=== PATIENT | female | born 1960 | race Caucasian/White ===

== ENCOUNTER 2020-08-14 10:14 | Day surgery (SDC) | payer OTHER, SELFPAY ==
[2020-08-12 09:43] VITALS: BMI 21.9
--- NOTE | 2020-08-13 11:03 | P.CONAN_ITS ---
Documented by User: Lisha Tompkins 08/13/20 11:05 HPI - Anesthesia Eval Consult details Narrative: 60yo F for Colonoscopy: screening [facility] Past Medical History Medical History Allergic rhinitis HSV infection Stress incontinence Surgical History Surgical History Hx of colonoscopy Social History Social History Smoking Status: Never smoker Use of substances other than those prescribed or required for medical reasons: No Advance Directives: No Advance Directives Information Provided: No Advance Directives on File: No Meds Allergies Allergy/AdvReac Type Severity Reaction Status Date / Time cashew nut Allergy Intermediate HIVES Verified 08/14/20 11:10 walnut Allergy Intermediate HIVES Verified 08/14/20 11:10 Home Medications Medication Instructions Recorded Confirmed Type valacyclovir 1 tab PO DAILY 08/12/20 08/12/20 History fluticasone propionate [Flonase] INTRANASAL 08/13/20 History Exam Exam Date and Time: August 13, 2020 1103 Height,Weight and Vital Signs: Height 5 ft 2 in Weight 54.431 kg Assessment and Plan Assessment Anesthesia Assessment: Chart Reviewed Documented by User: Christiane Hutchison 08/14/20 12:31 [facility] Past Medical History Medical History Allergic rhinitis HSV infection Stress incontinence Family History Family history of problems with anesthesia: No Surgical History Surgical History Hx of colonoscopy History of Problems with Anesthesia: No Social History Social History Smoking Status: Never smoker Use of substances other than those prescribed or required for medical reasons: No Advance Directives: No Advance Directives Information Provided: No Advance Directives on File: No Meds Allergies Allergy/AdvReac Type Severity Reaction Status Date / Time cashew nut Allergy Intermediate HIVES Verified 08/14/20 11:10 walnut Allergy Intermediate HIVES Verified 08/14/20 11:10 Home Medications Medication Instructions Recorded Confirmed Type valacyclovir 1 tab PO DAILY 08/12/20 08/12/20 History fluticasone propionate [Flonase] INTRANASAL 08/13/20 History Exam Height,Weight and Vital Signs: Vital Signs Temp Pulse Resp BP Pulse Ox 08/14/20 11:12 97.9 F 56 16 127/71 98 Airway Mallampati Class: II TM Dist: >3cm Neck ROM: Full Denture: Upper Loose/Missing/Broken Teeth: No Heart: RRR Lungs: CTAB Assessment and Plan Assessment Anesthesia Assessment: Anesthesia Plan Discussed and Chart Reviewed Final Anesthetic Review NPO: Yes ASA Class: II Final Preanesthetic Review: No Changes in Pt Med Stat, Meds/Allgs Chart Reviewed, Consent Obtained/Reviewed and Anes Risks/Benef Reviewed Patient Risk: Low Procedure Risk: Low Anesthetic Plan Anesthetic Plan: MAC: Disposition: Standard PACU
[2020-08-14 11:12] VITALS: BP 127/71; PULSE 56; RESP 16; TEMP 36.6; O2SAT 98
[2020-08-14] MEDS: Lactated Ringers 1,000 ML 100 ML IVCONT (11:14)
[2020-08-14 11:15] VITALS: BMI 21.9
--- NOTE | 2020-08-14 12:41 | MHC.SHP ---
Pre-Procedural Eval Section A The patient is an INPATIENT: No The History & Physical has been completed within 30 days and I have reviewed it.: No Section B Chief Complaint: Screening Details of Present Illness: Colon cancer screening Relevant Family History (Specify if Yes): No Relevant Social History: None Present Medications: see Short Stay Collaborative assessment Medical History: Significant History (Seasonal allergies) History of Previous Operations: Relevant previous surgery/procedure and date(s) (colo--2010-neg) Allergies: Allergies Allergy/AdvReac Type Severity Reaction Status Date / Time cashew nut Allergy Intermediate HIVES Verified 08/14/20 11:10 walnut Allergy Intermediate HIVES Verified 08/14/20 11:10 Review of Systems Sugical H&P ROS: Negative: Constitution, Cardiovascular, Respiratory, Gastrointestinal and Musculoskeletal Exam Surgical H&P Exam: Normal: HEENT, Normal: Heart, Normal: Lungs, Normal: Extremities, Normal: Abdomen and Normal: Skin Plan Diagnosis/Plan: Unchanged Patient has been examined and remains a candidate for the planned procedure--YES
[2020-08-14 13:24] VITALS: BP 118/61; PULSE 73; RESP 16; TEMP 36.5; O2SAT 98
--- NOTE | 2020-08-14 13:25 | PM.PROC ---
Brief Operative Note Date of procedure: 08/14/20 Pre-op diagnosis: Colon cancer screening Post-op diagnosis: other (Normal exam) Procedure: Colonoscopy, no intervention Anesthesia: MAC (CARLOS ALBERTO Sandoval) Surgeon: Katy Quinn Estimated blood loss (mL): 0 Pathology: none sent Condition: stable Disposition: other
[2020-08-14 13:39] VITALS: BP 135/65; PULSE 71; RESP 16; TEMP 36.5; O2SAT 98
--- NOTE | 2020-08-14 14:57 | HO.POSTANES ---
Post Anesthesia Evaluation Post Anesthesia Evaluation Vital Signs: Vital Signs Temp Pulse Resp BP Pulse Ox 08/14/20 13:39 97.7 F 71 16 135/65 98 08/14/20 13:24 97.7 F 73 16 118/61 98 08/14/20 11:12 97.9 F 56 16 127/71 98 Anesthesia: General (TIVA) Mental Status: Awake Pain Control: Satisfactory Nausea/Vomiting: None Hydration: Adequate Anesthesia-Related Issues: No Anes. Related Issues
--- NOTE | 2020-08-17 12:17 | OP_ITS ---
SURGEON: Katy Quinn MD PREOPERATIVE DIAGNOSIS: Colon cancer screening. POSTOPERATIVE DIAGNOSIS: Negative exam. PROCEDURE PERFORMED: Colonoscopy. ESTIMATED BLOOD LOSS: No blood loss. COMPLICATIONS: No complications were observed. ANESTHESIA:MONITORED ANESTHESIOLOGIST: Bc Sandoval CRNA ASSISTANTS: No assistant city attorney. SPECIMENS: No specimens were sent. PRIMARY CARE PROVIDER: Adi Coello DO FINDINGS: Digital rectal exam revealed adequate sphincter tone. Video colonoscope was introduced without difficulty. It was navigated into the rectosigmoid and sigmoid inot descending, transverse, ascending colon down into the cecum. Appendiceal orifice was seen. Ileocecal valve was well seen. No mucosal abnormalities. Prep was good. Slow rotational views on withdrawal of the scope, no mucosal lesions were appreciated. Anorectal verge was clear. PLAN: Current recommendations for repeat asymptomatic screening in this patient is 10 years. TYPE OF ANESTHESIA: Monitored. GRAFT OR IMPLANTS: No grafts or implants. CONDITION: Postprocedure, stable. Katy Quinn MD MEN/MODL / [id number] MTDD
== END 2020-08-14 15:36 | disposition home or self-care (01) ==
PROVIDERS: PCP Family Medicine; Visit Provider Internal Medicine Gastroenterology
PROC: 0DJD8ZZ Inspection of Lower Intestinal Tract, Via Natural or Artificial Opening Endoscopic (ICD-10-PCS; CPT 45378; principal; 2020-08-14 11:40)
DX: Z12.11 Encounter for screening for malignant neoplasm of colon (principal); J30.9 Allergic rhinitis, unspecified; Z79.51 Long term (current) use of inhaled steroids; Z91.018 Allergy to other foods; Z87.891 Personal history of nicotine dependence
CPT/HCPCS: 45378

== ENCOUNTER 2021-05-01 10:45 | Outpatient (REF) | payer OTHER, SELFPAY ==
--- NOTE | ~2021-05-01 | MM_ITS ---
EXAMINATION: MM SCREENING DIGITAL BREAST TOMOSYNTHESIS, BILATERAL CLINICAL INFORMATION: Screening. Asymptomatic. The lifetime risk of breast cancer based on the Tyrer-Cuzick Model is 8%. COMPARISON: Mammography: 04/24/2020, 01/09/2019, 12/14/2017 TECHNIQUE: Digital breast tomosynthesis is performed in both the craniocaudal and mediolateral oblique views along with computer-aided detection (CAD). Synthesized 2D images are generated from the tomosynthesis. FINDINGS: There are scattered areas of fibroglandular density (ACR BI-RADS breast composition Category b). There are no significant masses, abnormal calcifications, or other abnormalities. Parenchymal pattern is similar to prior studies. No developing density. The axilla and skin contours are unremarkable. MM/MM tomosynthesis screening BI IMPRESSION: No mammographic evidence of malignancy. ASSESSMENT: BI-RADS 1: Negative RECOMMENDATION: Routine annual mammography screening. This patient's information was entered into a reminder system with a target due date for their next mammogram.
--- NOTE | ~2021-05-01 | MM_ITS ---
EXAMINATION: BONE DENSITOMETRY CLINICAL INDICATION: Osteoporosis. COMPARISON: None (current study represents initial baseline exam). TECHNIQUE: Using a [employer] DXA System (software version: 13.1) manufactured by [employer], dual-energy x-ray absorptiometry was performed of the lumbar spine and left hip. The images are of good technical quality. Summary results are attached. FINDINGS: AP SPINE L1-L4: BMD 1.086 g/cm2, Z-score 0.8, T-score -0.8, normal. LEFT FEMUR, NECK: BMD 0.784 g/cm2, Z-score -0.3, T-score -1.8, osteopenia. LEFT FEMUR, TOTAL: BMD 0.853 g/cm2, Z-score 0.0, T-score -1.2, osteopenia. IDENTIFIED RISK FACTORS: Menopause, family history (parental hip fracture). HISTORY OF FRACTURE: None listed. MEDICATIONS: Calcium supplements or multivitamin. MM/XR DEXA axial skeleton IMPRESSION: 1. DIAGNOSIS: Osteopenia based on the lowest T-score value of -1.8 in the femoral neck applying World Health Organization criteria. 2. 10-YEAR FRACTURE RISK PREDICTION, FRAX: Major osteoporotic fracture (clinical spine, forearm, hip or shoulder) 17.8%. Hip fracture 1.2%. 3. Treatment Recommendations: NOF guidelines recommend consideration for treatment in postmenopausal women and men age 50 and older presenting with the following: -A hip or vertebral (clinical or morphometric) fracture. -T-score less than or equal to -2.5 at the femoral neck or spine after appropriate evaluation to exclude secondary causes. -Low bone mass at the hip or spine and a 10-year fracture probability by FRAX of greater than or equal to 3% for hip fracture or greater than or equal to 20% for major osteoporotic fracture based on the [place] adapted WHO algorithm. 4. Other Recommendations: All treatment decisions require clinical judgment and consideration of individual patient factors, including patient preferences, comorbidities, previous drug use, risk factors not captured in the FRAX model (e.g. frailty, falls, vitamin D deficiency, increased bone turnover, interval significant decline in bone density) and possible under or overestimation of fracture risk by FRAX. Additional medical evaluation for secondary cause of low bone mineral density may be appropriate. FUTURE SCAN RECOMMENDATION: People with diagnosed cases of osteoporosis or at high risk for fracture should have regular bone mineral density tests. For patients eligible for Medicare, routine testing is allowed once every 2 years. The testing frequency can be increased to one year for patients who have rapidly progressing disease, those who are receiving or discontinuing medical therapy to restore bone mass, or have additional risk factors.
== END 2021-05-01 10:46 | disposition home or self-care (01) ==
LOC: HO.MAMMO 10:45
PROVIDERS: Visit Provider Family Medicine
DX: Z12.31 Encounter for screening mammogram for malignant neoplasm of breast (principal); Z13.820 Encounter for screening for osteoporosis; M85.80 Other specified disorders of bone density and structure, unspecified site; Z78.0 Asymptomatic menopausal state; Z79.899 Other long term (current) drug therapy
CPT/HCPCS: 77063; 77067; 77080

== ENCOUNTER 2022-05-26 14:07 | Outpatient (REF) | payer OTHER, SELFPAY ==
--- NOTE | ~2022-05-26 | MM_ITS ---
EXAMINATION: MM SCREENING DIGITAL BREAST TOMOSYNTHESIS, BILATERAL CLINICAL INFORMATION: Screening. Asymptomatic. The lifetime risk of breast cancer based on the Tyrer-Cuzick Model is 8%. COMPARISON: Mammography: 05/01/2021, 04/24/2020, 01/09/2019 TECHNIQUE: Digital breast tomosynthesis is performed in both the craniocaudal and mediolateral oblique views along with computer-aided detection (CAD). Synthesized 2D images are generated from the tomosynthesis. Additional exaggerated left CC view is provided. FINDINGS: There are scattered areas of fibroglandular density (ACR BI-RADS breast composition Category b). There are no significant masses, abnormal calcifications, or other abnormalities. Parenchymal pattern is similar to prior studies. There is no developing density or architectural abnormality. The axilla and skin contours are unremarkable. No significant changes. MM/MM tomosynthesis screening BI IMPRESSION: No mammographic evidence of malignancy. ASSESSMENT: BI-RADS 1: Negative RECOMMENDATION: Routine annual mammography screening. This patient's information was entered into a reminder system with a target due date for their next mammogram.
== END 2022-05-26 14:08 | disposition home or self-care (01) ==
LOC: HO.MAMMO 14:07
PROVIDERS: PCP Family Medicine; Visit Provider Family Medicine
DX: Z12.31 Encounter for screening mammogram for malignant neoplasm of breast (principal)
CPT/HCPCS: 77063; 77067

== ENCOUNTER 2023-06-09 11:07 | Outpatient (REF) | payer OTHER, SELFPAY | END 2023-06-09 11:08 | disposition home or self-care (01) | LOC: HO.MAMMO 11:07 | PROVIDERS: PCP Internal Medicine; Visit Provider Family Medicine | DX: Z12.31 Encounter for screening mammogram for malignant neoplasm of breast (principal) | CPT/HCPCS: 77063; 77067 ==

== ENCOUNTER → 2023-06-09 11:15 | Outpatient (BNV) | payer OTHER, SELFPAY | PROVIDERS: PCP Internal Medicine; Visit Provider Radiology Diagnostic Radiology | DX: Z12.31 Encounter for screening mammogram for malignant neoplasm of breast (principal) | CPT/HCPCS: 77063; 77067 ==

== ENCOUNTER 2024-06-15 12:56 | Outpatient (REF) | payer MEDICARE, OTHER, SELFPAY ==
--- NOTE | ~2024-06-15 | MM_ITS ---
EXAMINATION: MM SCREENING DIGITAL BREAST TOMOSYNTHESIS, BILATERAL CLINICAL INFORMATION: Screening. Asymptomatic. COMPARISON: Mammography: This study is compared with prior exams dating back to 2019. TECHNIQUE: Digital breast tomosynthesis is performed in both the craniocaudal and mediolateral oblique views along with computer-aided detection (CAD). Synthesized 2D images are generated from the tomosynthesis. FINDINGS: The breasts are heterogeneously dense, which may obscure small masses (ACR BI-RADS breast composition Category c). There are no significant masses, abnormal calcifications, or other abnormalities. MM/MM tomosynthesis screening BI IMPRESSION: No mammographic evidence of malignancy. ASSESSMENT: BI-RADS BI-RADS 1 - Negative RECOMMENDATION: Routine annual mammography screening. 1 year F/U This examination should not preclude the clinical evaluation of a suspicious palpable abnormality. This patient's information was entered into a reminder system with a target due date for their next mammogram. Electronically signed by: Amber Cano MD 07/10/2024 12:42 PM EDT
== END 2024-06-15 12:57 | disposition home or self-care (01) ==
LOC: HO.MAMMO 12:56
PROVIDERS: PCP Internal Medicine; Visit Provider Internal Medicine
DX: Z12.31 Encounter for screening mammogram for malignant neoplasm of breast (principal)
CPT/HCPCS: 77063; 77067

== ENCOUNTER → 2024-06-15 13:00 | Outpatient (BNV) | payer MEDICARE, OTHER, SELFPAY | PROVIDERS: PCP Internal Medicine; Visit Provider Radiology Diagnostic Radiology | DX: Z12.31 Encounter for screening mammogram for malignant neoplasm of breast (principal) | CPT/HCPCS: 77063; 77067 ==

== ENCOUNTER 2024-06-21 10:10 | Outpatient (REF) | payer MEDICARE, OTHER, SELFPAY ==
--- NOTE | ~2024-06-21 | MM_ITS ---
EXAMINATION: BONE DENSITOMETRY CLINICAL INDICATION: Menopause. Osteopenia. COMPARISON: Baseline BD dated 05/01/2021. TECHNIQUE: Using a [employer] DXA System (software version: 13.1) manufactured by [employer], dual-energy x-ray absorptiometry was performed of the lumbar spine and left hip. The images are of good technical quality. Summary results are attached. FINDINGS: LEFT FEMUR, NECK: Current: BMD 0.785 g/cm2, Z-score -0.2, T-score -1.8, osteopenia. Baseline: BMD 0.784 g/cm2. LEFT FEMUR, TOTAL: Current: BMD 0.846 g/cm2, Z-score 0.1, T-score -1.3, osteopenia, 0.8% decrease from baseline (<5% change is not significant). Baseline: BMD 0.853 g/cm2. AP SPINE L1-L4: Current: BMD 1.118 g/cm2, Z-score 1.4, T-score -0.5, normal, 2.9% increase from baseline (<5% change is not significant). Baseline: BMD 1.086 g/cm2. IDENTIFIED RISK FACTORS: Menopause, family history (parent hip fracture). HISTORY OF FRACTURE: None listed. MEDICATIONS: Calcium, multivitamin. MM/XR DEXA axial skeleton IMPRESSION: 1. DIAGNOSIS: Osteopenia based on the lowest T-score value of -1.8 in the femoral neck applying World Health Organization criteria. 2. 10-YEAR FRACTURE RISK PREDICTION, FRAX: Major osteoporotic fracture (clinical spine, forearm, hip or shoulder) 18.0%. Hip fracture 1.5%. 3. Treatment Recommendations: NOF guidelines recommend consideration for treatment in postmenopausal women and men age 50 and older presenting with the following: -A hip or vertebral (clinical or morphometric) fracture. -T-score less than or equal to -2.5 at the femoral neck or spine after appropriate evaluation to exclude secondary causes. -Low bone mass at the hip or spine and a 10-year fracture probability by FRAX of greater than or equal to 3% for hip fracture or greater than or equal to 20% for major osteoporotic fracture based on the [place] adapted WHO algorithm. 4. Other Recommendations: All treatment decisions require clinical judgment and consideration of individual patient factors, including patient preferences, comorbidities, previous drug use, risk factors not captured in the FRAX model (e.g. frailty, falls, vitamin D deficiency, increased bone turnover, interval significant decline in bone density) and possible under or overestimation of fracture risk by FRAX. Additional medical evaluation for secondary cause of low bone mineral density may be appropriate. FUTURE SCAN RECOMMENDATION: People with diagnosed cases of osteoporosis or at high risk for fracture should have regular bone mineral density tests. For patients eligible for Medicare, routine testing is allowed once every 2 years. The testing frequency can be increased to one year for patients who have rapidly progressing disease, those who are receiving or discontinuing medical therapy to restore bone mass, or have additional risk factors. Electronically signed by: Conrad Aguilar MD 06/26/2024 11:14 AM EDT RP
== END 2024-06-21 10:11 | disposition home or self-care (01) ==
LOC: HO.MAMMO 10:10
PROVIDERS: PCP Internal Medicine; Visit Provider Internal Medicine
DX: Z13.820 Encounter for screening for osteoporosis (principal); M85.80 Other specified disorders of bone density and structure, unspecified site; Z78.0 Asymptomatic menopausal state
CPT/HCPCS: 77080

== ENCOUNTER 2025-06-21 12:43 | Outpatient (REF) | payer MEDICARE, OTHER, SELFPAY ==
--- OUTSIDE RECORDS SUMMARY | 2025-06-18 15:30 | XMS_ITS | Encounter Summary ---
Author Organization [facility] Address [address] [place] [address] Care Team Providers Care Neurology Technologist Name Role Phone Conrad Engle Primary Care Provider [phone] Reason for Visit * Reason Comments Follow-up telehealth Encounter Details Date Type Department Care Team (Late st Contact Info) Description 06/18/2025 3:30 PM EDT Telehealth [address] [address] Regional Sales Consultant: Donald Navarrete MD [address] [place] [address] Social History Tobacco Use Types Packs/Day Years Used Date Smoking Tobacco: Never Smokeless Tobacco: Never Comments No Sex and Gender Information Value Date Recorded Sex Assigned at Female 05/01/2024 1:42 PM EDT Legal Sex Female 12:44 PM EDT Gender Identity Female 05/01/2024 1:42 PM EDT Sexual Orientation Straight 05/01/2024 1: 42 PM EDT documented as of this encounter Plan of Treatment Not on file documented as of this encounter Visit Diagnoses Not on filedocumented in this encounter Care Teams Neurology Technologist Relationship Specialty Start Date End Date Conrad Engle [address] [place] [id number] PCP - General Family Medicine 02/20/25 documented as of this encounter
--- NOTE | ~2025-06-21 | MM_ITS ---
EXAMINATION: MM SCREENING DIGITAL BREAST TOMOSYNTHESIS, BILATERAL CLINICAL INFORMATION: Screening. Asymptomatic. COMPARISON: Mammography: Comparison is made with available priors TECHNIQUE: Digital breast mammography with tomosynthesis is performed in both the craniocaudal and mediolateral oblique views along with computer-aided detection (CAD). FINDINGS: The breasts are heterogeneously dense, which may obscure small masses (ACR BI-RADS breast composition Category c). There are no significant masses, abnormal calcifications, or other abnormalities. MM/MM tomosynthesis screening BI IMPRESSION: No mammographic evidence of malignancy. ASSESSMENT: BI-RADS BI-RADS 1 - Negative RECOMMENDATION: Routine annual mammography screening. 1 year F/U This examination should not preclude the clinical evaluation of a suspicious palpable abnormality. This patient's information was entered into a reminder system with a target due date for their next mammogram. Electronically signed by: Lydia Ludwig DO 06/25/2025 10:36 AM EDT
--- OUTSIDE RECORDS SUMMARY | 2025-06-21 13:12 | XMS_ITS | Clinical Summary ---
Author Organization [facility] Address [address] [place] [address] Care Team Providers Care Charrer Name Role Phone Oniel Conrad Roger Primary Care Provider [phone] Allergies Active Allergy Reactions Criticality Noted Date Comments Cashew Nut Hives 04/01/2023 Medications traZODone (DESYREL) 50 mg tablet SMARTSI Tablet(s) By Mouth Every Night 03/15/2023 Active valACYclovir (VALTREX) 500 mg tablet SMARTSI Tablet(s) By Mouth Daily 03/18/2023 Active Encounters Date Type Department Care Team Description 06/18/2025 3:30 PM EDT Telehealth [address] [address] [employer] Services Manager: Donald Navarrete MD from Last 3 Months Social History Tobacco Use Types Packs/Day Years Used Date Smoking Tobacco: Never Smokeless Tobacco: Never Tobacco Cessation:Counseling Given: Not Answered Comments No Sex and Gender Information Value Date Recorded Sex Assigned at Female 05/01/2024 1:42 PM EDT Legal Sex Female 12:44 PM EDT Gender Identity Female 05/01/2024 1:42 PM EDT Sexual Orientation Straight 05/01/2024 1: 42 PM EDT Last Filed Vital Signs Vital Sign Reading Time Taken Comments Blood Pressure 117/79 04/01/2023 1:36 PM EDT Pulse 69 04/01/2023 1:36 PM EDT Temperature 36.4 C (97.5 F) 04/01/2023 1:36 PM EDT Respiratory Rate 16 04/01/2023 1:36 PM EDT Oxygen Saturation 96% 04/01/2023 1:36 PM EDT Inhaled Oxygen Concentration - - Weight 56.2 kg (124 lb) 04/01/2023 1:36 PM EDT Height - - Body Mass Index - - Plan of Treatment Health Maintenance Due Date Last Done Comments Cologuard 1959 Colon Cancer Screening 1959 Colonoscopy 1959 FOBT / Fit Test 1959 Hepatitis C Screening 1959 Sigmoidoscopy 1960 Medicare AWV 01/18/1960 Mammogram 1999 Osteoporosis Screening 2009 Pneumococcal Vaccine: 50+ Years (1 of 1 - PCV) 2009 Zoster Vaccines (1 of 2) 2009 DTaP,Tdap,and Td Vaccines (1 - Tdap) 06/01/2024 05/31/2024 COVID-19 Vaccine (3 - 2023-2 5 season) 2024 03/01/2021, 02/08/2021 Alcohol/Substance Use Screening 10/24/2024 Depression Screening and Follow-Up 10/24/2024 Health Care Proxy Review 10/24/2024 Social Drivers of Health Annual Screening 10/24/2024 Influenza Vaccine (#1) 2025 RSV Vaccine (60+ years old a nd patients) (1 - 1-dose 75+ series) 2034 Hepatitis B Vaccines Aged Out No long er eligible based on patient's age to complete this topic Procedures * Due to [employer] law, this organization might not be sharing negative HIV tests. Procedure Name Priority Date/Time Associated Diagnosis Comments MRI ABDOMEN W WO CONTRAST MRCP Routine 05/27/2025 1:40 PM EDT At high risk for pancreatic cancer AMB EXTERNAL MRI ABDOMEN, OUTSIDE RESULT 05/27/2025 from Last 3 Months Results * Due to [employer] law, this organization might not be sharing negative HIV tests. * MRI Abdomen W WO Contrast Mrcp (05/27/2025 1:40 PM EDT) Anatomical Region Laterality Modality Body Magnetic Resonan ce 05/27/2025 12:5 0 PM EDT Narrative 05/28/2025 11:02 AM EDT [facility] Accession Number: [id number] Patient Name: Sandy Armstrong Date of : 1960 Date of Exam: 05-27-2025 Referring Physician: Donald Tapia [address] [address] Exam: MR MRCP (C-/C+) CPT 27217 Room Description: [facility] 3.0T MR MRCP (C-/C+) CPT 52387 CLINICAL INDICATION: High risk pancreatic cancer screening TECHNIQUE: Multiplanar, multisequence pre and post contrast MRI evaluation of the abdomen was performed. 6 cc of Elucirem gadolinium administered intravenously. 3-D rotating maximum intensity projection MRCP images of the biliary tree were generated on the same workstation with concurrent physician supervision. COMPARISON: Outside MRI abdomen performed at [facility] dated 05/02/2024 and 04/29/2023 FINDINGS: LOWER THORAX: Partially imaged subsegmental atelectasis within right middle lobe and lingula. No pleural or pericardial effusion. LIVER: Normal contour and size. Normal parenchymal enhancement. Two lobular T1 hypointense, T2 hyperintense lesions measuring 1.6 cm in segment 4A and 1.3 cm in segment 5/8 demonstrate peripheral nodular enhancement with gradual centripetal progression consistent with hemangiomas, similar to prior (series 2 images 12 and 18). Additional 1.1 cm T1 hypointense T2 hyperintense lobular focus within segment 8 demonstrates faint delayed peripheral nodular enhancement, likely a slow filling hemangioma (series 2 image 16), unchanged. No suspicious lesion. GALLBLADDER: Normal. No gallstones or wall thickening. BILE DUCTS: No biliary ductal dilatation. SPLEEN: Normal. PANCREAS: Unchanged fatty infiltration in the pancreatic head. 0.3 cm T2 hyperintense focus in the pancreatic head (series 3 image 38), unchanged from 04/2024. 0.3 cm T2 hyperintense focus adjacent to pancreatic duct at the tail suggestive of an ectatic branch duct (series 2 image 23, series 3 image 33), similar to prior. No solid or enhancing pancreatic lesion. No pancreatic ductal dilatation. ADRENAL GLANDS: No nodules. KIDNEYS: No hydronephrosis. Kidneys enhance symmetrically. Few subcentimeter bilateral renal T2 hyperintense foci consistent with cysts. No suspicious mass. STOMACH/UPPER GI TRACT: Stomach and visualized abdominal bowel normal in caliber. PERITONEUM AND RETROPERITONEUM: No loculated fluid collection or peritoneal mass. LYMPH NODES: No lymphadenopathy. VESSELS: Abdominal aorta is nonaneurysmal. Hepatic, portal and splenic veins patent. Circumaortic left renal vein, anatomic variant. Visualized inferior vena cava unremarkable. ABDOMINAL WALL: Unremarkable. BONES: Mild degenerative changes involve the spine. Grade 1 anterolisthesis L4 and L5. IMPRESSION: 1. Tiny 0.3 cm cystic focus in pancreatic head, stable since 04/2024. Differential diagnosis includes benign or low-grade side-branch intraductal papillary mucinous neoplasm and non-neoplastic cyst. No solid or enhancing pancreatic mass. Management as per gastroenterology. 2. Stable hepatic hemangiomas. Electronically Signed By: Josesito Rodriguez MD Procedure Note Provider, Nahed - 05/28/2025 [facility] Accession Number: [id number] Patient Name: Sandy Armstrong Date of : 1960 Date of Exam: 05-27-2025 Referring Physician: Donald Tapia [address] [address] Exam: MR MRCP (C-/C+) CPT 01653 Room Description: [facility] 3.0T MR MRCP (C-/C+) CPT 84554 CLINICAL INDICATION: High risk pancreatic cancer screening TECHNIQUE: Multiplanar, multisequence pre and post contrast MRI evaluation of the abdomen was performed. 6 cc of Elucirem gadolinium administered intravenously. 3-D rotating maximum intensity projection MRCP images of the biliary tree were generated on the same workstation with concurrent physician supervision. COMPARISON: Outside MRI abdomen performed at [facility] dated 05/02/2024 and 04/29/2023 FINDINGS: LOWER THORAX: Partially imaged subsegmental atelectasis within right middle lobe and lingula. No pleural or pericardial effusion. LIVER: Normal contour and size. Normal parenchymal enhancement. Two lobular T1 hypointense, T2 hyperintense lesions measuring 1.6 cm in segment 4A and 1.3 cm in segment 5/8 demonstrate peripheral nodular enhancement with gradual centripetal progression consistent with hemangiomas, similar to prior (series 2 images 12 and 18). Additional 1.1 cm T1 hypointense T2 hyperintense lobular focus within segment 8 demonstrates faint delayed peripheral nodular enhancement, likely a slow filling hemangioma (series 2 image 16), unchanged. No suspicious lesion. GALLBLADDER: Normal. No gallstones or wall thickening. BILE DUCTS: No biliary ductal dilatation. SPLEEN: Normal. PANCREAS: Unchanged fatty infiltration in the pancreatic head. 0.3 cm T2 hyperintense focus in the pancreatic head (series 3 image 38), unchanged from 04/2024. 0.3 cm T2 hyperintense focus adjacent to pancreatic duct at the tail suggestive of an ectatic branch duct (series 2 image 23, series 3 image 33), similar to prior. No solid or enhancing pancreatic lesion. No pancreatic ductal dilatation. ADRENAL GLANDS: No nodules. KIDNEYS: No hydronephrosis. Kidneys enhance symmetrically. Few subcentimeter bilateral renal T2 hyperintense foci consistent with cysts. No suspicious mass. STOMACH/UPPER GI TRACT: Stomach and visualized abdominal bowel normal in caliber. PERITONEUM AND RETROPERITONEUM: No loculated fluid collection or peritoneal mass. LYMPH NODES: No lymphadenopathy. VESSELS: Abdominal aorta is nonaneurysmal. Hepatic, portal and splenic veins patent. Circumaortic left renal vein, anatomic variant. Visualized inferior vena cava unremarkable. ABDOMINAL WALL: Unremarkable. BONES: Mild degenerative changes involve the spine. Grade 1 anterolisthesis L4 and L5. IMPRESSION: 1. Tiny 0.3 cm cystic focus in pancreatic head, stable since 04/2024. Differential diagnosis includes benign or low-grade side-branch intraductal papillary mucinous neoplasm and non-neoplastic cyst. No solid or enhancing pancreatic mass. Management as per gastroenterology. 2. Stable hepatic hemangiomas. Electronically Signed By: Josesito Rodriguez MD us Donald Tapia MD IMG MRI PROCEDURES Final Re sult * MRI Abdomen, Outside Result (05/27/2025) Anatomical Region Laterality Modality Other 05/27/2025 us Onbase Scan Rama AMB EXTERNAL RESULT PROCEDURE S Final Result from Last 3 Months Insurance MEDICARE [facility] Care Teams Charrer Relationship Specialty Start Date End Date Conrad Engle [address] [place] [address] [place] [id number] PCP - General Family Medicine 02/20/25
--- OUTSIDE RECORDS SUMMARY | 2025-06-21 13:12 | XMS_ITS | Clinical Summary ---
Author Organization [facility] Address [address] [address] Phone Care Team Providers Care Electrical Installation Inspector Name Role Phone Conrad Engle MD Primary Care Provid er Allergies No known active allergies Medications No known medications Active Problems No known active problems Immunizations Immunization Administration Dates Next Due COVID-19 (Pre-08/15) Pfizer Vaccine, mRNA, PF ,02/08/2021 Family History Medical History Relation Comments CABG Father Hypertension Father Breast cancer Mother Heart valve surgery Mother Hypertension Mother Hypertension Sister 1 Transient ischemic attack Sister 1 Hypertension Sister 2 Relation Status Comments Father Mother Alive Sister 1 Alive Sister 2 Alive Social History Tobacco Use Types Packs/Day Years Used Date Smoking Tobacco: Former Cigarettes Q uit: 1985 Smokeless Tobacco: Never Alcohol Use Standard Drinks/Week Comments Yes 0 (1 standard drink = 0.6 oz pur e alcohol) rare Education Answer Date Recorded Are you interested in more education? Not on óscar e 02/18/2023 Are you concerned about learning? Not on file 02/18/2023 No 02/18/2023 No 02/18/2023 Digital Access Answer Date Recorded No 03/19/2023 No 03/19/2023 No 03/19/2023 Reliable internet access at home? Not on file 03/19/2023 Device with a working camera? Not on file Comments No Sex and Gender Information Value Date Recorded Sex Assigned at Not on file Legal Sex Female 9:50 PM EDT Gender Identity Not on file Sexual Orientation Not on file Last Filed Vital Signs Vital Sign Reading Time Taken Comments Blood Pressure 120/66 05/29/2020 3:19 PM EDT Pulse - - Temperature - - Respiratory Rate - - Oxygen Saturation - - Inhaled Oxygen Concentration - - Weight 55.8 kg (123 lb) 05/29/2020 3:19 PM EDT Height 157.5 cm (5' 2 ) 05/29/2020 3:19 PM EDT Body Mass Index 22.5 05/29/2020 3:19 PM EDT Plan of Treatment Health Maintenance Due Date Last Done Comments Adult Td,Tdap Booster 1960 LIPID PANEL 1959 DEPRESSION SCREENING 1971 SMOKING Hx and SMOKELESS TOBACCO SCREENING 01/18/1972 HEPATITIS C SCREENING 1977 MAMMOGRAM 1999 COLOGUARD 01/18/2004 COLONOSCOPY 01/18/2004 COLORECTAL CANCER SCREENING 01/18/2004 FIT TEST 01/18/2004 FOBT 01/18/2004 SIGMOIDOSCOPY 01/18/2004 VIRTUAL COLONOSCOPY 01/18/2004 PNEUMOCOCCAL VACCINES (50+ years) (1 of 1 - PCV) 2009 ZOSTER VACCINES (1 of 2) 2009 OSTEOPOROSIS SCREENING INITI AL (ONE-TIME) 01/18/2024 COVID-19 VACCINE (3 - 2023-2 5 season) 2024 03/01/2021, 02/08/2021 RSV VACCINE (1 - 1-dose 75+ series) 2034 HEPATITIS A VACCINES Aged Out No long er eligible based on patient's age to complete this topic HIB VACCINES Aged Out No longer eligi ble based on patient's age to complete this topic MENINGOCOCCAL VACCINES (ACWY) Aged Out No longer eligible based on patient's age to complete this topic MENINGOCOCCAL VACCINES (B) Aged Out N o longer eligible based on patient's age to complete this topic Medical Devices Not on file Insurance [facility] [place] [id number] [facility] [employer] [facility] [id number] [facility] [place] [id number] [facility] [employer] [place] [address] [facility] [place] [address] [facility] [employer] POS [facility] [employer] POS [facility] EX[employer]ER POS Care Teams Electrical Installation Inspector Relationship Specialty Start Date End Date Conrad Engle MD [address] [place] [address] [place] [id number] PCP - General 08/09/17 Additional Source Comments The information contained in this document represents components of the legal health record. It is not the complete legal health record.[facility]
== END 2025-06-21 12:44 | disposition home or self-care (01) ==
LOC: HO.MAMMO 12:43
PROVIDERS: PCP Internal Medicine; Visit Provider Internal Medicine
DX: Z12.31 Encounter for screening mammogram for malignant neoplasm of breast (principal)
CPT/HCPCS: 77063; 77067

== ENCOUNTER → 2025-06-21 13:00 | Outpatient (BNV) | payer MEDICARE, OTHER, SELFPAY | PROVIDERS: PCP Internal Medicine; Visit Provider Internal Medicine | DX: Z12.31 Encounter for screening mammogram for malignant neoplasm of breast (principal) | CPT/HCPCS: 77063; 77067 ==